=== PATIENT | female | born 1990 | race Caucasian/White ===

== ENCOUNTER 2016-10-14 09:40 | Emergency (ER) | payer OTHER ==
[~2016-10-14] VITALS: Ht 162.6 cm; Wt 72.1 kg
[~2016-10-14 09:40] MED LIST: FERR325T OR; No Historical Meds
[2016-10-14] MEDS ORDERED: IPRATROPIUM 0.5MG/ALBUTEROL 2.5MG INH SOL UD 3ML (DUONEB)(J7620) NEB ONE (10:30)
[2016-10-14] MEDS ORDERED: ALBUTEROL SULFATE 2.5 MG/0.5 ML INH NEB SOLN INH ONE (10:30)
--- NOTE | 2016-10-14 11:33 | REP ---
Clinical: Acute cough . Comparison: 08/16/2015 . Technique: PA and lateral. Findings: The mediastinum and cardiac silhouette are normal. The lung donis are clear and without acute consolidation, effusion, or pneumothorax. The skeletal structures are intact and normal. Impression: 1. No acute cardiopulmonary process. Signed by Jeremy Shipley MD 10/14/2016 11:25 A
[2016-10-14] MEDS ORDERED: PRED20TA PO (11:37)
[2016-10-14] MEDS ORDERED: ZITHTAB PO (11:37)
[2016-10-14] MEDS ORDERED: ALBU17IN INH (11:41)
[2016-10-14] MEDS ORDERED: predniSONE 50 MG TAB PO ONE (11:45)
[2016-10-14] MEDS ORDERED: predniSONE 10 MG TAB PO ONE (11:45)
[2016-10-14] MEDS ORDERED: AZITHROMYCIN 250 MG TAB PO ONE (11:45)
[2016-10-14 11:48] VITALS: BP 155/79
== END 2016-10-14 11:55 | disposition home or self-care (01) ==
LOC: M ED 09:59
DX: J20.9 Acute bronchitis, unspecified (principal); J45.909 Unspecified asthma, uncomplicated; Z87.891 Personal history of nicotine dependence

== ENCOUNTER 2017-03-06 11:00 | Emergency (ER) | payer OTHER ==
[~2017-03-06] VITALS: Ht 162.6 cm; Wt 93.6 kg
[~2017-03-06 11:00] MED LIST changes: +ALBU17IN INH; +PRED20TA PO; +ZITHTAB PO
[2017-03-06] MEDS ORDERED: MULTTAB20 PO (11:09)
[2017-03-06] MEDS ORDERED: NS 1,000 ML IV ONE (11:45)
[2017-03-06 12:15] LABS: BASO % 0.2 % (0.0-1.0); EOS # 0.3 10^3/uL (0.0-0.50); EOS % 3.5 % (0.0-3.0); IMMATURE GRANULOCYTE % 0.3 % (0-0); LYMPH # 2.3 10^3/uL (1.5-6.5); LYMPH % 25.6 % (24.0-44.0); MEAN CORPUSCULAR HEMOGLOBIN 21.7 pg (27.0-33.0); MEAN CORPUSCULAR HGB CONC 31.3 g/dl (32.0-36.5); MONO # 0.4 10^3/uL (0.0-0.8); MONO % 4.9 % (0.0-5.0); NEUTROPHILS # 5.9 10^3/uL (1.8-7.7); NEUTROPHILS % 65.5 % (36.0-66.0); PLATELET COUNT, AUTOMATED 251 10^3/uL (150-450); RED CELL DISTRIBUTION WIDTH 19.3 % (11.5-14.5)
[2017-03-06 12:16] LABS: ADD MORPHOLOGY? YES; MEAN CORPUSCULAR VOLUME 69.3 fl (80.0-96.0)
[2017-03-06 12:57] LABS: MICROCYTOSIS 3+
[2017-03-06 12:58] LABS: OVALOCYTES 1+
--- NOTE | 2017-03-06 13:07 | REP ---
FIRST TRIMESTER ULTRASOUND: Real-time sonographic evaluation of the gravid uterus is performed utilizing transabdominal technique. There is a single living intrauterine gestation with estimated gestational age of 9 weeks 1 day based on crown rump length of 24 mm, EDC 10/08/2017. heart rate 187 beats per minute. There is no subchorionic hemorrhage. No maternal adnexal region abnormality is seen. Signed by Casey Kevin MD 03/06/2017 02:46 P
[2017-03-06 13:13] LABS: ALBUMIN 3.7 GM/DL (3.2-5.2); ALBUMIN/GLOBULIN RATIO 0.93 (1.00-1.93); ALKALINE PHOSPHATASE 66 U/L (45-117); ALT/SGPT 41 U/L (12-78); ANION GAP 9 MEQ/L (8-16); AST/SGOT 29 U/L (15-37); BILIRUBIN,DIRECT 0.1 MG/DL (0.0-0.2); BILIRUBIN,TOTAL 0.7 MG/DL (0.2-1.0); BLOOD UREA NITROGEN 5 MG/DL (7-18); CALCIUM LEVEL 8.9 MG/DL (8.5-10.1); CARBON DIOXIDE LEVEL 25 MEQ/L (21-32); CHLORIDE LEVEL 105 MEQ/L (98-107); CREATININE FOR GFR 0.69 MG/DL (0.55-1.02); GLOMERULAR FILTRATION RATE > 60.0 (>60); GLUCOSE, FASTING 77 MG/DL (70-105); HCG, SERUM QUANTITATIVE 53798 MIU/ML; POTASSIUM SERUM 4.1 MEQ/L (3.5-5.1); SODIUM LEVEL 139 MEQ/L (136-145); TOTAL PROTEIN 7.7 GM/DL (6.4-8.2)
[2017-03-06 13:40] VITALS: BP 132/80
== END 2017-03-06 13:41 | disposition home or self-care (01) ==
LOC: M ED 11:00
DX: O20.8 Other hemorrhage in early pregnancy (principal); Z3A.09 9 weeks gestation of pregnancy; O99.331 Smoking (tobacco) complicating pregnancy, first trimester; Z79.899 Other long term (current) drug therapy

== ENCOUNTER → 2017-05-13 | Outpatient (CLI) | payer OTHER ==
[~2017-05-13] MED LIST changes: +MULTTAB20 PO
--- NOTE | 2017-05-13 17:24 | REP ---
OB ULTRASOUND: Real-time sonographic evaluation of the gravid uterus is performed. There is a single living intrauterine gestation. The estimated gestational age is 18 weeks 5 days, EDC 10/09/2017. Today's measurements indicate appropriate growth. BPD 47 mm = 20 weeks 1 day, 89th percentile HC 173 mm = 19 weeks 6 days, 85th percentile AC 145 mm = 19 weeks 6 days, 74th percentile FL 31 mm = 19 weeks 4 days, 71st percentile HC/AC ratio 1.20, within normal range. Estimated weight 309 grams, 87th percentile. Cervix closed and measures 4 cm in length. heart rate 150 beats per minute. SEEN/GROSSLY UNREMARKABLE Lateral ventricles yes Posterior fossa yes Upper lip yes Four-chamber heart yes LVOT no RVOT no Stomach yes Cord insertion yes Three vessel cord yes Kidneys yes Bladder yes Spine yes position: Vertex. Placenta: Fundal and anterior, grade 0, with no previa or abruption. Placental echotexture is somewhat heterogeneous and there is an area of the placenta which appears somewhat thickened up to about 4.9 cm. This suggests placentomegaly. This is a nonspecific finding. Amniotic fluid: Within normal limits. Signed by Casey Kevin MD 05/14/2017 09:18 A
== END ==
LOC: M RAD 15:34
PROVIDERS: ATTEND Obstetrics & Gynecology Obstetrics
DX: O99.212 Obesity complicating pregnancy, second trimester (principal); Z3A.18 18 weeks gestation of pregnancy

== ENCOUNTER 2018-09-02 14:29 | Emergency (ER) | payer OTHER ==
[~2018-09-02] VITALS: Ht 162.6 cm; Wt 90.9 kg
[2018-09-02 15:52] LABS: HEMATOCRIT 32.3 % (36.0-47.0); HEMOGLOBIN 9.5 g/dl (12.0-15.5); MEAN CORPUSCULAR HEMOGLOBIN 19.3 pg (27.0-33.0); MEAN CORPUSCULAR HGB CONC 29.4 g/dl (32.0-36.5); MEAN CORPUSCULAR VOLUME 65.8 fl (80.0-96.0); PLATELET COUNT, AUTOMATED 306 10^3/uL (150-450); RED BLOOD COUNT 4.91 10^6/uL (4.00-5.40); WHITE BLOOD COUNT 8.6 10^3/uL (4.0-10.0)
--- NOTE | 2018-09-02 16:42 | REP ---
OB ULTRASOUND: Real-time sonographic evaluation of the gravid uterus is performed utilizing transabdominal technique. There is a single living intrauterine gestation. The estimated gestational age is 7 weeks 6 days based on a crown rump length of 15 mm. EDC 04/15/2019. heart rate is 144 beats per minute. There is a subchorionic hemorrhage on the left measuring 3.5 x 0.6 x 1.3 cm. No gross adnexal region abnormality is seen. Electronically Signed by Casey Kevin MD 09/02/2018 04:45 P
[2018-09-02 16:55] VITALS: BP 124/65
== END 2018-09-02 17:11 | disposition home or self-care (01) ==
LOC: M ED 14:29
DX: O20.8 Other hemorrhage in early pregnancy (principal); Z3A.01 Less than 8 weeks gestation of pregnancy; O99.331 Smoking (tobacco) complicating pregnancy, first trimester; F17.210 Nicotine dependence, cigarettes, uncomplicated

== ENCOUNTER → 2018-09-24 | Outpatient (CLI) | payer OTHER ==
[2018-09-24 14:29] LABS: BASO % 0.4 % (0.0-1.0); EOS # 0.2 10^3/uL (0.0-0.50); EOS % 2.3 % (0.0-3.0); HEMATOCRIT 31.8 % (36.0-47.0); HEMOGLOBIN 9.4 g/dl (12.0-15.5); LYMPH # 2.1 10^3/uL (1.5-6.5); LYMPH % 26.9 % (24.0-44.0); MEAN CORPUSCULAR HEMOGLOBIN 19.5 pg (27.0-33.0); MEAN CORPUSCULAR HGB CONC 29.6 g/dl (32.0-36.5); MEAN CORPUSCULAR VOLUME 66.1 fl (80.0-96.0); MONO # 0.5 10^3/uL (0.0-0.8); NEUTROPHILS % 63.9 % (36.0-66.0); PLATELET COUNT, AUTOMATED 259 10^3/uL (150-450); RED BLOOD COUNT 4.81 10^6/uL (4.00-5.40); WHITE BLOOD COUNT 7.9 10^3/uL (4.0-10.0)
[2018-09-24 14:45] LABS: TOTAL PROTEIN,RANDOM URINE 20.6 MG/DL (0.0-12.0)
[2018-09-24 14:55] LABS: ALT/SGPT 22 U/L (12-78); BILIRUBIN,TOTAL 0.4 MG/DL (0.2-1.0); CREATININE FOR GFR 0.55 MG/DL (0.55-1.30); GLOMERULAR FILTRATION RATE > 60.0 (>60); LDH LACTATE DEHYDROGENASE 152 U/L (84-246); URIC ACID 3.9 MG/DL (2.6-6.0)
[2018-09-24 15:13] LABS: RUBELLA IgG QUALITATIVE IMMUNE (IMMUNE)
[2018-09-24 15:42] LABS: HEPATITIS C VIRUS ABY INDEX 0.1 INDEX (<0.8); HIV 1&2 SCREEN CENTAUR NEGATIVE (NEGATIVE)
[2018-09-24 16:17] LABS: CHLAMYDIA DNA AMPLIFICATION NEGATIVE (NEGATIVE); GC DNA AMPLIFICATION NEGATIVE (NEGATIVE)
== END ==
LOC: M WUC 10:19
PROVIDERS: ATTEND Advanced Practice Midwife
DX: Z34.00 Encounter for supervision of normal first pregnancy, unspecified trimester (principal); Z3A.09 9 weeks gestation of pregnancy

== ENCOUNTER → 2018-11-17 | Outpatient (CLI) | payer OTHER ==
--- NOTE | 2018-11-17 18:50 | REP ---
OB ULTRASOUND: Real-time sonographic evaluation of the gravid uterus is performed. There is a single living intrauterine gestation. The estimated gestational age is 18 weeks 5 days. EDC 04/15/2019. Today's measurements indicate appropriate growth. BPD 44 mm = 19 weeks 2 days, 65th percentile. HC 158 mm = 18 weeks 5 days, 50th percentile. AC 133 mm = 18 weeks 5 days, at the 52nd percentile. Femur length 28 mm = 18 weeks 3 days, at the 46th percentile. HC/AC ratio 1.19 within normal range. Estimated weight 250 grams, 46th percentile. Cervix is closed and measures 3.1 cm in length. heart rate 155 beats per minute. SEEN/GROSSLY UNREMARKABLE Lateral ventricles Yes Posterior fossa Yes Upper lip No Four-chamber heart Yes LVOT No RVOT No Stomach Yes Cord insertion Yes Three vessel cord Yes Kidneys Yes Bladder Yes Spine Yes position: Vertex. Placenta: Anterior and to the right and grade 0 with no previa or abruption. There is a velamentous cord insertion noted. Amniotic fluid within normal limits. Electronically Signed by Casey Kevin MD 11/18/2018 09:00 A
== END ==
LOC: M RAD 13:44
PROVIDERS: ATTEND Advanced Practice Midwife
DX: Z34.82 Encounter for supervision of other normal pregnancy, second trimester (principal); Z3A.18 18 weeks gestation of pregnancy

== ENCOUNTER → 2018-12-22 | Outpatient (CLI) | payer OTHER ==
--- NOTE | 2018-12-23 04:38 | REP ---
Clinical: Anatomical evaluation. Comparison: 11/17/2018 . Findings: Examination demonstrates a single live intrauterine in cephalic presentation. motion is identified by technologist. Placenta is noted fundal and grade one without evidence for placenta previa or abruption. There is evidence for velamentous cord insertion to the placenta. Amniotic fluid volume is normal. Cervix measures 3.4 cm in length and appears closed. No evidence for nuchal cord. Gestational age by LMP 27 weeks 1 day with BLUE 03/22/2019 . Gestational age by current measurements 23 weeks 5-day with BLUE 04/15/2019 . FHR equals 139 beats per minute. Estimated weight 607 grams ( 42nd percentile based on age by first ultrasound and current measurements ). Anatomical assessment demonstrates normal structures including cranium, choroid plexus, cavum, cerebellum/posterior fossa, facial features, lungs, four-chamber heart/ventricular outflow tracts, diaphragm, stomach, cord insertion/three-vessel cord, kidneys/bladder, spine, and extremities. Impression: 1. Single live intrauterine in cephalic presentation demonstrating appropriate interval growth compared to first ultrasound. 2. Anatomical assessment is complete and normal. 3. Velamentous cord insertion noted. Electronically Signed by Jeremy Shipley MD 12/23/2018 04:29 A
== END ==
LOC: M RAD 08:45
PROVIDERS: ATTEND Advanced Practice Midwife
DX: O99.212 Obesity complicating pregnancy, second trimester (principal); Z3A.27 27 weeks gestation of pregnancy

== ENCOUNTER → 2019-02-21 | Outpatient (CLI) | payer OTHER ==
[2019-02-21 17:49] LABS: HEMATOCRIT 28.3 % (36.0-47.0); HEMOGLOBIN 8.8 g/dl (12.0-15.5); MEAN CORPUSCULAR HEMOGLOBIN 21.3 pg (27.0-33.0); MEAN CORPUSCULAR HGB CONC 31.1 g/dl (32.0-36.5); MEAN CORPUSCULAR VOLUME 68.4 fl (80.0-96.0); PLATELET COUNT, AUTOMATED 203 10^3/uL (150-450); RED BLOOD COUNT 4.14 10^6/uL (4.00-5.40); WHITE BLOOD COUNT 10.8 10^3/uL (4.0-10.0)
== END ==
LOC: M SMT 14:07
PROVIDERS: ATTEND Advanced Practice Midwife
DX: Z34.82 Encounter for supervision of other normal pregnancy, second trimester (principal); Z3A.00 Weeks of gestation of pregnancy not specified

== ENCOUNTER → 2019-03-22 | Outpatient (REF) | payer OTHER ==
[~2019-03-22] MED LIST changes: +FERR325T3 PO; +OMEP40CA97 PO
== END ==
LOC: M LAB REF 17:19
PROVIDERS: ATTEND Specialist
DX: O99.013 Anemia complicating pregnancy, third trimester (principal)

== ENCOUNTER → 2019-03-29 | Outpatient (CLI) | payer OTHER | LOC: M SMT 14:01 | PROVIDERS: ATTEND Specialist | DX: O99.013 Anemia complicating pregnancy, third trimester (principal); D64.9 Anemia, unspecified ==

== ENCOUNTER 2019-04-08 05:53 | Inpatient (IN) | payer OTHER ==
[2019-04-08] VITALS (8 sets, daily range): BP systolic 108–132; BP diastolic 52–78
[~2019-04-08] VITALS: Ht 162.6 cm; Wt 92.1 kg
[2019-04-08] MEDS ORDERED: ceFAZolin SOD 2 GM in IV 1 EA IV ONE (06:15)
[2019-04-08] MEDS ORDERED: LR 1,000 ML IV SCH ×2 (06:15→09:15)
[2019-04-08] MEDS ORDERED: BICITRA 30ML SOLN UDC PO ONE (06:15)
[2019-04-08] MEDS ORDERED: LR 800 ML IV ONE (06:15)
[2019-04-08] MEDS ORDERED: OXYC1TAB23 PO (06:41)
[2019-04-08 06:46] LABS: HEMATOCRIT 30.6 % (36.0-47.0); HEMOGLOBIN 9.1 g/dl (12.0-15.5); MEAN CORPUSCULAR HEMOGLOBIN 19.4 pg (27.0-33.0); MEAN CORPUSCULAR HGB CONC 29.7 g/dl (32.0-36.5); MEAN CORPUSCULAR VOLUME 65.2 fl (80.0-96.0); PLATELET COUNT, AUTOMATED 265 10^3/uL (150-450); RED BLOOD COUNT 4.69 10^6/uL (4.00-5.40); WHITE BLOOD COUNT 12.5 10^3/uL (4.0-10.0)
[2019-04-08] MEDS ORDERED: OXYTOCIN INJ 10 UNITS/ML VIAL (J2590) As Ordered ONE (07:17)
[2019-04-08] MEDS ORDERED: MORPHINE PRES-FREE INJ 10 MG/10 ML VIAL (J2274) As Ordered ONE (07:29)
[2019-04-08] MEDS ORDERED: ePHEDrine SULFATE 25 MG/5 ML(5MG/ML) SYRINGE As Ordered ONE (07:29)
[2019-04-08] MEDS ORDERED: KETOROLAC 60 MG/2 ML VIAL (J1885) As Ordered ONE (07:29)
[2019-04-08] MEDS ORDERED: ONDANSETRON 4MG/2ML VIAL (J2405) As Ordered ONE (07:29)
[2019-04-08] MEDS ORDERED: diphenhydrAMINE INJ 50MG/ML VIAL (J1200) IV PRN (07:43)
[2019-04-08] MEDS ORDERED: NALOXONE INJ 0.4 MG/1 ML VIAL (J2310) IV PRN ×2 (07:43)
[2019-04-08] MEDS ORDERED: ONDANSETRON 4MG/2ML VIAL (J2405) IV PRN ×3 (07:43→09:15)
[2019-04-08] MEDS ORDERED: NALBUPHINE HCL 10 MG/ML AMP (J2300) IV PRN (07:43)
[2019-04-08] MEDS ORDERED: METOCLOPRAMIDE INJ 10MG/2ML VIAL (J2765) IV PRN ×2 (07:43→09:15)
[2019-04-08] MEDS ORDERED: OXYTOCIN DRIP 30 UNITS in IV 1 EA IV SCH (08:47)
[2019-04-08] MEDS ORDERED: PERCOCET 5MG/325MG TAB PO PRN ×2 (09:00→09:15)
[2019-04-08] MEDS ORDERED: RHOGAM 300 MCG (1500 IU) INJ (J2790) IM SCH (09:00)
[2019-04-08] MEDS: PRENATAL VITAMINS CHEWABLE TABLET PO SCH (09:00)
[2019-04-08] MEDS ORDERED: DOCUSATE SODIUM 100 MG CAP PO PRN (09:00)
[2019-04-08] MEDS ORDERED: MEASLES,MUMPS,RUBELLA VACCINE INJ (MMR-II) (90707) SC SCH (09:00)
[2019-04-08] MEDS ORDERED: MEPERIDINE INJ 25 MG/ML VIAL (J2175) IV PRN (09:15)
[2019-04-08] MEDS ORDERED: fentaNYL 100 MCG/2 ML INJECTION (J3010) IV PRN (09:15)
[2019-04-08] MEDS ORDERED: OXYTOCIN 30 UNITS IN 0.9% NaCl 500ML IV BAG (J2590) As Ordered ONE (09:59)
--- NOTE | 2019-04-08 11:53 | RO ---
DATE OF PROCEDURE: 04/08/2019 PREPROCEDURE DIAGNOSES: 39 weeks, prior section times two. Undesired fertility. POSTPROCEDURE DIAGNOSES: 39 weeks, prior section times two. Undesired fertility. PROCEDURES: 1. Repeat low transverse section. 2. Bilateral tubal ligation. SURGEON: Nathan Parikh MD CARD PUNCHING MACHINE OPERATOR: Miriam Rodriguez CNM ANESTHESIA: Spinal. ESTIMATED BLOOD LOSS: 500 mL. URINE OUTPUT: 50 mL. FINDINGS: 6 pound 1 ounce, 2740 gram female . scores 8 and 9. Nuchal cord times two. Adhesion of omentum at the anterior abdominal wall. Thin lower uterine segment noted. Normal fallopian tubes and ovaries. DESCRIPTION OF PROCEDURE: The patient was taken to the operating room where spinal anesthesia was induced. She was prepped and draped in the sterile fashion in the dorsal lithotomy position. Rubalcava catheter was placed. Pfannenstiel skin incision was made with the scalpel and carried through to the fascia. The fascia was nicked and extended. The fascia was dissected off the rectus muscles. The peritoneal cavity was entered. Bladder flap was created. Adhesions of omentum at the anterior abdominal wall were taken down sharply. Bladder flap was created. Curvilinear incision was made in the thin lower uterine segment until bulging membranes were noted. This was extended manually. Membranes were ruptured of clear fluid. was delivered from the vertex position without difficulty. The cord was doubly clamped and cut. The infant was handed off to the waiting nurse. Placenta was expressed. The uterus was exteriorized and cleared of clots and debris. Uterine incision was closed with 0 Vicryl in a running lock fashion. Second imbricating layer of 0 Vicryl was placed. Attention was turned to the fallopian tubes. The tubes were grasped at the mid portion with a Grayson clamp and a window was created in the broad ligament. Free tie of 3-0 chromic was placed around the segments on either sided of the Garret clamp. A knuckle of tube was excised and sent to pathology. Uterus was placed back in the abdominal cavity. The peritoneum was closed with 2-0 Vicryl in a running fashion. The fascia was closed with 0 Vicryl in a running fashion. The deep layer was irrigated and closed with 3-0 chromic. The skin was closed with 4-0 Monocryl subcuticular sutures. Sponge, instrument and needle counts were correct. Miriam Rodriguez CNM assisted throughout the procedure. She helped create each layer of the incision. She helped close. She helped delivery the fetus. She was indispensable for the procedure.
[2019-04-08] MEDS: KETOROLAC 30 MG/ML VIAL (J1885) IV SCH ×2 (14:45→19:51)
[2019-04-08] MEDS: LR 1,000 ML IV SCH ×2 (15:40→19:32)
[2019-04-09 02:30] VITALS: BP 128/79
[2019-04-09] MEDS: LR 1,000 ML IV SCH (02:46)
[2019-04-09] MEDS: KETOROLAC 30 MG/ML VIAL (J1885) IV SCH (02:46)
[2019-04-09 06:00] VITALS: BP 117/58
[2019-04-09 07:09] LABS: HEMATOCRIT 24.1 % (36.0-47.0); MEAN CORPUSCULAR HEMOGLOBIN 19.7 pg (27.0-33.0); MEAN CORPUSCULAR HGB CONC 29.5 g/dl (32.0-36.5); MEAN CORPUSCULAR VOLUME 66.9 fl (80.0-96.0); PLATELET COUNT, AUTOMATED 203 10^3/uL (150-450); WHITE BLOOD COUNT 8.7 10^3/uL (4.0-10.0)
[2019-04-09 07:13] LABS: HEMOGLOBIN 7.1 g/dl (12.0-15.5)
--- NOTE | 2019-04-09 09:16 | IPNPDOC ---
Text Note Date of Service The patient was seen on 04/09/19. NOTE PO #1 Feels well. Adequate pain management. Bottle feeding. Tolerating regular diet. Voiding and passing flatus VSS, afebrile, normotensive Fundus firm Dressing intact, old drainage Lochia rubra scant without odor PO #1 Routine care. Anticipate D/C in am VS,Fishbone, I+O VS, Fishbone, I+O Laboratory Tests 04/09/19 06:49 Vital Signs Date Time Temp Pulse Resp B/P (MAP) Pulse Ox O2 Delivery O2 Flow Rate FiO2 04/09/19 06:00 97.4 63 16 117/58 (77) 04/09/19 02:30 100 Room Air I&O- Last 24 Hours up to 6 AM 04/09/19 05:59 Intake Total 3840 ml Output Total 2975 ml Balance 865 ml Jenny Brandt CNM Apr 09, 2019 09:16
[2019-04-09] MEDS: PRENATAL VITAMINS CHEWABLE TABLET PO SCH (09:21)
[2019-04-09] MEDS: IBUPROFEN 800 MG TAB PO SCH ×2 (09:56→17:40)
[2019-04-09 10:00] VITALS: BP 124/62
[2019-04-09 14:00] VITALS: BP 134/67
[2019-04-09 17:55] VITALS: BP 123/68
[2019-04-09 22:00] VITALS: BP 117/72
[2019-04-10] MEDS: IBUPROFEN 800 MG TAB PO SCH ×2 (02:52→10:21)
[2019-04-10 06:00] VITALS: BP 123/60
[2019-04-10] MEDS ORDERED: IBUP80TA PO (08:23)
[2019-04-10] MEDS: PRENATAL VITAMINS CHEWABLE TABLET PO SCH (08:33)
--- NOTE | 2019-04-10 08:56 | DSES ---
DATE OF ADMISSION: 04/08/2019 DATE OF DISCHARGE: 04/10/2019 28-year-old, (G) 3, para (P) 2 female at 39 weeks gestation who presents for a scheduled repeat section and tubal ligation. She had no complications. HOSPITAL COURSE: On 04/08/2019, the patient underwent repeat section and bilateral tubal ligation for a 6 pound 1 ounce female infant. There were no complications. Her postoperative course was unremarkable. She had adequate return of bladder and bowel function. Her postoperative hemoglobin was 7.1 grams/dl. She was asymptomatic at this level. She was deemed stable for discharge on postoperative day #2. ADMISSION DIAGNOSIS: at 39 weeks, prior section times two. DISCHARGE DIAGNOSIS: Delivered. PROCEDURE: Repeat low transverse section, bilateral tubal ligation. DISPOSITION: The patient will followup with Dr. Parikh in 2 weeks. Instructions were reviewed. edited: 04/11/2019 0742 tkf MTDD
== END 2019-04-10 11:15 | disposition home or self-care (01) | DRG 540 ==
LOC: M LDI 05:53 → M OBS 10:20
PROVIDERS: ADMIT Specialist; ATTEND Specialist
PROC: 0UB70ZZ Excision of Bilateral Fallopian Tubes, Open Approach (ICD-10-PCS; 2019-04-08)
PROC: 10D00Z1 Extraction of Products of Conception, Low, Open Approach (ICD-10-PCS; principal; 2019-04-08 07:30)
DX: O34.211 Maternal care for low transverse scar from previous cesarean delivery (principal); Z3A.39 39 weeks gestation of pregnancy; Z37.0 Single live birth; Z30.2 Encounter for sterilization; O69.81X0 Labor and delivery complicated by cord around neck, without compression, not applicable or unspecified

== ENCOUNTER → 2019-11-04 | Outpatient (CLI) | payer OTHER ==
[~2019-11-04] MED LIST changes: +IBUP-1022 PO; +IBUP80TA PO; +OXYC1TAB23 PO
== END ==
LOC: M LABSMTC 09:29
PROVIDERS: ATTEND Anesthesiology
DX: Z01.818 Encounter for other preprocedural examination (principal); Z11.59 Encounter for screening for other viral diseases
CPT/HCPCS: C9803; U0003

== ENCOUNTER 2019-11-07 07:59 | Day surgery (SDC) | payer OTHER ==
[~2019-11-07] VITALS: Ht 162.6 cm; Wt 90.7 kg
[~2019-11-07 07:59] MED LIST changes: -IBUP-1022 PO; +LR 1,000 ML IV ONE; +ceFAZolin SOD 2 GM in IV 1 EA IV ONE
[2019-11-07 08:37] LABS: HEMATOCRIT 32.3 % (36.0-47.0); HEMOGLOBIN 9.6 g/dl (12.0-15.5); MEAN CORPUSCULAR HEMOGLOBIN 20.6 pg (27.0-33.0); MEAN CORPUSCULAR HGB CONC 29.7 g/dl (32.0-36.5); MEAN CORPUSCULAR VOLUME 69.5 fl (80.0-96.0); PLATELET COUNT, AUTOMATED 223 10^3/uL (150-450); RED BLOOD COUNT 4.65 10^6/uL (4.00-5.40); WHITE BLOOD COUNT 5.6 10^3/uL (4.0-10.0)
[2019-11-07] MEDS ORDERED: BUPIVACAINE HCL 0.25% 10ML VIAL As Ordered ONE (09:36)
[2019-11-07] MEDS ORDERED: OXYC1TAB23 PO (09:59)
[2019-11-07] MEDS ORDERED: IBUP-1022 PO (10:00)
[2019-11-07] MEDS ORDERED: fentaNYL 100 MCG/2 ML INJECTION (J3010) As Ordered ONE (10:11)
[2019-11-07] MEDS ORDERED: dexameTHASONE 4 MG/ML 1ML VIAL (J1100 PER 1MG) As Ordered ONE (10:11)
[2019-11-07] MEDS ORDERED: LIDOCAINE 2% 100MG/5ML SDV (FOR ANES.) As Ordered ONE (10:12)
[2019-11-07] MEDS ORDERED: MIDAZOLAM INJ 2MG/2ML VIAL (J2250 PER 1MG) As Ordered ONE (10:12)
[2019-11-07] MEDS ORDERED: ONDANSETRON 4MG/2ML VIAL As Ordered ONE ×2 (10:12→12:02)
[2019-11-07] MEDS ORDERED: ROCURONIUM BROMIDE 50 MG/5 ML VIAL As Ordered ONE (10:12)
[2019-11-07] MEDS ORDERED: propofoL 200 MG/20 ML VIAL As Ordered ONE (10:12)
[2019-11-07] MEDS ORDERED: HYDROmorphone HCL 2 MG/ML 1ML VIAL (J1170) As Ordered ONE (10:12)
[2019-11-07] MEDS ORDERED: SUGAMMADEX SODIUM 500 MG/5 ML VIAL (BRIDION) As Ordered ONE (10:12)
[2019-11-07] MEDS ORDERED: KETOROLAC 60 MG/2 ML VIAL As Ordered ONE (10:12)
[2019-11-07] MEDS ORDERED: ALBUTEROL 6.7GM INHALER **FOR ANES. CART/OMNICELL ONLY As Ordered ONE (10:12)
[2019-11-07] MEDS ORDERED: MORPHINE 4 MG/ML 1ML VIAL/SYRINGE (J2270) IV PRN (12:15)
[2019-11-07] MEDS ORDERED: fentaNYL 100 MCG/2 ML INJECTION (J3010) IV PRN (12:15)
[2019-11-07] MEDS ORDERED: ONDANSETRON 4MG/2ML VIAL IV PRN ×2 (12:15)
[2019-11-07] MEDS ORDERED: LR 1,000 ML IV SCH ×2 (12:15)
[2019-11-07] MEDS ORDERED: PERCOCET 5MG/325MG TAB PO PRN ×2 (12:15)
[2019-11-07] MEDS ORDERED: oxyCODONE 5MG TAB PO PRN (12:15)
[2019-11-07] MEDS ORDERED: KETOROLAC 30 MG/ML 1ML VIAL IV PRN (12:30)
[2019-11-07 17:30] VITALS: BP 136/76
[2019-11-07] MEDS ORDERED: DOCUSATE SODIUM 100 MG CAP PO SCH (21:00)
--- NOTE | 2019-11-10 16:52 | RO ---
DATE OF PROCEDURE: 11/07/2019 PREOPERATIVE DIAGNOSIS: Menorrhagia. POSTOPERATIVE DIAGNOSIS: Menorrhagia. PROCEDURE: Robotic assisted laparoscopic hysterectomy. Bilateral salpingectomy. Cystoscopy. SURGEON: Nathan Parikh MD GOLD LEAF GILDER: Alona Everett NP ANESTHESIA: General endotracheal. ESTIMATED BLOOD LOSS: 200 mL. URINE OUTPUT: 100 mL. FINDINGS: Normal sized uterus, fallopian tubes with evidence of prior tubal sterilization. Omental adhesions to the anterior abdominal wall. Normal ovaries. OPERATIVE SUMMARY: The patient was taken to the operating room where general endotracheal anesthesia was induced. She was prepped and draped in sterile fashion in the dorsal lithotomy position. A Rubalcava catheter was placed. A VCare uterine manipulator was placed. A periumbilical incision was made with a scalpel. A Veress needle was placed through this incision while tenting up on skin of the abdomen. Intraabdominal location of the Veress needle was assessed with use of a saline filled syringe. A pneumoperitoneum was created. The Veress needle was removed. An 8 mm trocar using SwitchForce was inserted through this incision. Three 8 mm suprapubic ports were placed under direct visualization without difficulty. The patient was placed in Trendelenburg position. The da Lachelle surgical robot was docked to the ports. Using the fenestrated bipolar and a vessel sealer omental adhesions to the anterior abdominal wall were taken down sharply. Remnants of fallopian tubes were removed bilaterally. Utero-ovarian ligaments and round ligaments were coagulated and incised. The anterior and posterior leaflets of the broad ligament were . A bladder flap was created. The uterine vessels were coagulated and incised. An incision was created using monopolar Endo Jailene in the upper vagina at the level of the VCare cut. This was extended circumferentially around the vagina. The specimen containing the uterus and cervix was removed. The vaginal cuff was closed with #1 V-Loc suture in a running fashion. The pelvis was irrigated. Good hemostasis was noted. Cystoscopy was performed using a 70 degree cystoscope. Bilateral ureteral jets were identified and there was no evidence of injury to the bladder. All instruments were removed. The skin was closed with #4-0 Monocryl subcuticular sutures. Sponge, instrument, and needle counts were correct. All instruments removed. Alona Everett NP assisted throughout the procedure. She helped insert the ports, position the patient. She helped manipulate the uterus, remove the specimen at the end of the procedure. She helped to close. She was indispensable to the procedure.
== END 2019-11-07 18:00 | disposition home or self-care (01) ==
LOC: M SDC 07:59
PROVIDERS: ATTEND Specialist
DX: N92.0 Excessive and frequent menstruation with regular cycle (principal); N72 Inflammatory disease of cervix uteri; K21.9 Gastro-esophageal reflux disease without esophagitis; F17.218 Nicotine dependence, cigarettes, with other nicotine-induced disorders
CPT/HCPCS: 36415; 58571; 85027; 86850; 86870; 86900; 86901; 88307; J0690; J1100; J1170; J1885; J2250; J2405; J3010

== ENCOUNTER 2020-12-09 20:01 | Emergency (ER) | payer OTHER ==
[~2020-12-09] VITALS: Ht 162.6 cm; Wt 95.4 kg
[~2020-12-09 20:01] MED LIST changes: +IBUP-1022 PO; -LR 1,000 ML IV ONE; +OMEP40CA4 PO; -OMEP40CA97 PO; -ceFAZolin SOD 2 GM in IV 1 EA IV ONE
[2020-12-09] MEDS ORDERED: MAPA500C PO (20:10)
[2020-12-09] MEDS ORDERED: methocarbamoL 500 MG TAB PO ONE (22:45)
[2020-12-09] MEDS ORDERED: predniSONE 20 MG TAB PO ONE (22:45)
[2020-12-09] MEDS ORDERED: METH-1164 PO (22:51)
[2020-12-09] MEDS ORDERED: PRED10TA2 PO (22:51)
[2020-12-09 23:24] VITALS: BP 136/92
== END 2020-12-09 23:19 | disposition home or self-care (01) ==
LOC: M ED 20:01
DX: S16.1XXA Strain of muscle, fascia and tendon at neck level, initial encounter (principal); M54.12 Radiculopathy, cervical region; X58.XXXA Exposure to other specified factors, initial encounter; Y92.9 Unspecified place or not applicable; Y93.9 Activity, unspecified; Y99.9 Unspecified external cause status; F17.200 Nicotine dependence, unspecified, uncomplicated
CPT/HCPCS: 99283; J7512

== ENCOUNTER → 2022-09-09 | Outpatient (REF) | payer OTHER ==
[~2022-09-09] MED LIST changes: +MAPA500C PO; +METH-1164 PO; +PRED10TA2 PO
== END ==
LOC: M LAB REF 16:24
PROVIDERS: ATTEND Nurse Practitioner Family
DX: L20.9 Atopic dermatitis, unspecified (principal)

== ENCOUNTER → 2023-03-11 | Outpatient (REF) | payer OTHER | LOC: M LAB REF 16:39 | PROVIDERS: ATTEND Nurse Practitioner Family | DX: E55.9 Vitamin D deficiency, unspecified (principal) ==

== ENCOUNTER → 2023-07-02 | Outpatient (REF) | payer OTHER ==
[2023-07-02 17:23] LABS: ALBUMIN 3.7 G/DL (3.2-5.2); ALKALINE PHOSPHATASE 86 U/L (46-116); ALT/SGPT 28 U/L (7.0-40); AST/SGOT 15 U/L (<34); BILIRUBIN,TOTAL 0.9 MG/DL (0.3-1.2); BLOOD UREA NITROGEN 8 MG/DL (9-23); CALCIUM LEVEL 8.9 MG/DL (8.5-10.1); CARBON DIOXIDE LEVEL 28 MMOL/L (20-31); CHLORIDE LEVEL 106 MMOL/L (98-107); CHOLESTEROL LEVEL 167 MG/DL (<200); CHOLESTEROL RISK RATIO 6.81 (<5); CREATININE FOR GFR 0.68 MG/DL (0.55-1.30); GLOMERULAR FILTRATION RATE > 60.0 (>60); GLUCOSE, FASTING 80 MG/DL (60-100); HDL CHOLESTEROL 24.5 MG/DL (>40); IRON (FE) 59 UG/DL (50-170); LDL CHOLESTEROL 117.1 MG/DL (<100); NON-HDL-C 142.5 MG/DL; PERCENT SATURATION 18.7 % (13.2-45.0); SODIUM LEVEL 136 MMOL/L (136-145); TOTAL IRON BINDING CAPACITY 315 UG/DL (250-425); TOTAL PROTEIN 7.2 G/DL (5.7-8.2); TRIGLYCERIDES LEVEL 127 MG/DL (<150)
[2023-07-02 17:24] LABS: BASO # 0.1 10^3/uL (0.0-0.2); BASO % 0.8 % (0.0-1.0); EOS # 0.2 10^3/uL (0.0-0.5); EOS % 1.9 % (0.0-3.0); HEMATOCRIT 44.9 % (36.0-47.0); HEMOGLOBIN 15.2 g/dl (12.0-15.5); LYMPH # 2.6 10^3/uL (1.5-5.0); LYMPH % 29.6 % (24.0-44.0); MEAN CORPUSCULAR HEMOGLOBIN 29.5 pg (27.0-33.0); MEAN CORPUSCULAR HGB CONC 33.9 g/dl (32.0-36.5); MONO # 0.4 10^3/uL (0.0-0.8); MONO % 4.5 % (2.0-8.0); NEUTROPHILS # 5.5 10^3/uL (1.5-8.5); NEUTROPHILS % 62.5 % (36.0-66.0); PLATELET COUNT, AUTOMATED 219 10^3/uL (150-450); RED BLOOD COUNT 5.16 10^6/uL (4.00-5.40); WHITE BLOOD COUNT 8.9 10^3/uL (4.0-10.0)
[2023-07-02 17:25] LABS: FERRITIN 122.5 NG/ML (7.3-270.7); THYROID STIMULATING HORMONE 1.463 uIU/ML (0.55-4.78)
== END ==
LOC: M LAB REF 16:25
PROVIDERS: ATTEND Nurse Practitioner Family
DX: I10 Essential (primary) hypertension (principal); E61.1 Iron deficiency

== ENCOUNTER 2024-01-19 01:25 | Emergency (ER) | payer OTHER ==
[~2024-01-19] VITALS: Ht 165.1 cm; Wt 80.9 kg
[2024-01-19 01:32] VITALS: BP 151/102; TEMP 97.5; O2SAT 99
== END 2024-01-19 04:26 | disposition left against medical advice (07) ==
LOC: EDBD 01:25 → M ED 01:25
DX: Z53.21 Procedure and treatment not carried out due to patient leaving prior to being seen by health care provider (principal)

== ENCOUNTER → 2024-01-29 | Outpatient (REF) | payer OTHER ==
[2024-01-29 18:08] LABS: BASO % 0.5 % (0.0-1.0); EOS # 0.1 10^3/uL (0.0-0.5); EOS % 2.2 % (0.0-3.0); HEMATOCRIT 44.9 % (36.0-47.0); LYMPH # 1.7 10^3/uL (1.5-5.0); LYMPH % 26.9 % (24.0-44.0); MEAN CORPUSCULAR HEMOGLOBIN 29.1 pg (27.0-33.0); MEAN CORPUSCULAR HGB CONC 33.4 g/dl (32.0-36.5); MEAN CORPUSCULAR VOLUME 87.2 fl (80.0-96.0); MONO # 0.4 10^3/uL (0.0-0.8); MONO % 6.2 % (2.0-8.0); NEUTROPHILS # 4.1 10^3/uL (1.5-8.5); NEUTROPHILS % 63.9 % (36.0-66.0); PLATELET COUNT, AUTOMATED 188 10^3/uL (150-450); RED BLOOD COUNT 5.15 10^6/uL (4.00-5.40); WHITE BLOOD COUNT 6.4 10^3/uL (4.0-10.0)
[2024-01-29 18:36] LABS: BLOOD UREA NITROGEN 6 MG/DL (9-23); CARBON DIOXIDE LEVEL 29 MMOL/L (20-31); CHLORIDE LEVEL 105 MMOL/L (98-107); CREATININE FOR GFR 0.62 MG/DL (0.55-1.30); GLOMERULAR FILTRATION RATE > 60.0 (>60); GLUCOSE, FASTING 96 MG/DL (60-100); IRON (FE) 56 UG/DL (50-170); PERCENT SATURATION 17.9 % (13.2-45.0); POTASSIUM SERUM 3.9 MMOL/L (3.5-5.1); SODIUM LEVEL 137 MMOL/L (136-145); TOTAL IRON BINDING CAPACITY 313 UG/DL (250-425)
[2024-01-29 18:37] LABS: FERRITIN 164.4 NG/ML (7.3-270.7)
== END ==
LOC: M LAB REF 16:18
PROVIDERS: ATTEND Physician Assistant
DX: E61.1 Iron deficiency (principal); I10 Essential (primary) hypertension

== ENCOUNTER → 2024-01-30 | Outpatient (CLI) | payer OTHER | LOC: M RAD 15:28 | PROVIDERS: ATTEND Physician Assistant | DX: R22.2 Localized swelling, mass and lump, trunk (principal); M54.42 Lumbago with sciatica, left side ==

== ENCOUNTER → 2024-02-29 | Outpatient (CLI) | payer OTHER | LOC: M RAD 13:28 | PROVIDERS: ATTEND Physician Assistant | DX: R22.2 Localized swelling, mass and lump, trunk (principal) ==